=== PATIENT | female | born 1975 | race Caucasian/White ===

== ENCOUNTER 2022-11-26 08:47 | Outpatient (OUT) | payer BC, SELFPAY ==
--- NOTE | 2022-11-26 09:02 | MR_ITS ---
The [address] [address] Patient Name: KARMA CARBONE MRN: [id number] date: 1975 Sex: F Assigned Patient Location: MRI Current Patient Location: MRI Accession/Order Number: [id number] Exam Date: 11/26/2022 09:10 Report Date: 11/26/2022 10:59 At the request of: LYDIA FLOR Procedure: MR ankle RT wo con EXAM: MR ankle RT wo con REASON FOR EXAM: Right Peroneal Tendon Tear. TECHNIQUE: Multiplanar, multisequence imaging of the right ankle was performed without contrast COMPARISON: Plain radiograph 08/04/2022. FINDINGS: Mild fusiform thickening and intermediate signal of the Achilles tendon consistent with tendinosis. No tear identified. Small amount of fluid is present in the retrocalcaneal bursa. Laterally, the peroneal tendons are thickened with intermediate signal consistent with tendinosis. No tear identified. The superficial peroneal retinaculum is intact. Thickening and intermediate signal involving the anterior syndesmotic, anterior talofibular and calcaneofibular ligaments is consistent with prior lateral ligamentous injury. No evidence of acute lateral ligamentous injury identified. Small amount of fluid is present within the anterolateral gutter, can be seen with anterolateral impingement. Medially, the posterior tibial tendon is thickened with intermediate signal consistent with tendinosis. No tear. Mild tenosynovitis. The visualized flexor hallucis longus and flexor digitorum longus tendons are unremarkable. The deep deltoid ligament is dysmorphic with intermediate signal consistent with prior deep deltoid ligament sprain. Anteriorly, the visualized anterior extensor tendons are unremarkable. The bone marrow signal is without fracture or osteonecrosis. The talar dome is congruent. The subtalar joint is congruent with a small effusion. The sinus tarsi is mildly edematous. The visualized midfoot is congruent. MR/MR ankle RT wo con IMPRESSION: 1. 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 2. Posterior tibial tendinosis and tenosynovitis without tear. 3. Achilles tendinosis without tear. 4. Sequela of prior medial and lateral ligamentous injury. No evidence of acute lateral ligamentous injury identified. Electronically authenticated by: HAL DUMONT Date: 11/26/2022 10:59
== END 2022-11-26 08:48 | disposition home or self-care (01) ==
LOC: MRI 08:50
PROVIDERS: Visit Provider Physician Assistant
DX: S86.311A Strain of muscle(s) and tendon(s) of peroneal muscle group at lower leg level, right leg, initial encounter (principal); M25.371 Other instability, right ankle
CPT/HCPCS: 73721